=== PATIENT | female | born 1980 ===

== ENCOUNTER 2016-12-14 12:06 | Emergency (ER) | payer MEDICAID ==
[2016-12-14] MEDS ORDERED: DiphenhydrAMINE 50 mg/ml Inj IM STA ×2 (13:56→14:08)
[2016-12-14] MEDS ORDERED: DiphenhydrAMINE 50 mg/ml Inj ONE (14:04)
--- NOTE | 2016-12-14 15:15 | C.PDOC ---
History Of Present Illness 36 yr old female with history of prior rash and lip swelling in July of 2016 , was seen by an garbage stoker and was put on Benadryl and Claritin and symptoms resolved, presents to the ER with complaints of upper lip swelling since waking up this morning. Patient states since waking up the swelling has improved somewhat on its own without use of any medicine. Patient denies new foods, new medicine, ruthann inhibitors, difficulty swallowing or breathing, fever, chest pain , SOB, nausea, vomiting, headache, neck pain, weakness or numbness. Time Seen by Provider: 12/14/16 13:02 Chief Complaint (Nursing): Abnormal Skin Integrity History Per: Patient History/Exam Limitations: no limitations Onset/Duration Of Symptoms: Sudden Onset (Since waking up) Current Symptoms Are (Timing): Better Past Medical History Reviewed: Historical Data, Nursing Documentation, Vital Signs Vital Signs: Last Vital Signs Temp 98.0 F 12/14/16 15:58 Pulse 78 12/14/16 15:58 Resp 16 12/14/16 15:58 BP 123/79 12/14/16 15:58 Pulse Ox 97 12/14/16 18:08 Family History: States: No Known Family Hx - Social History Hx Alcohol Use: No Hx Substance Use: No - Immunization History Hx Tetanus Toxoid Vaccination: No Hx Influenza Vaccination: No Hx Pneumococcal Vaccination: No Review Of Systems Except As Marked, All Systems Reviewed And Found Negative. Constitutional: Negative for: Fever ENT: Positive for: Other ((+) Upper lip swelling ) Cardiovascular: Negative for: Chest Pain Respiratory: Negative for: Shortness of Breath Gastrointestinal: Negative for: Nausea, Vomiting Musculoskeletal: Negative for: Neck Pain Neurological: Negative for: Weakness, Numbness, Headache Physical Exam - Physical Exam Appears: Well, Non-toxic, No Acute Distress Skin: Warm, Dry, No Rash Head: Atraumatic, Normacephalic Oral Mucosa: Moist Lips: Swelling (Mild, diffuse swelling to the upper lip), No Abrasion, No Laceration, No Lesions Gingiva: Normal Appearing, No Erythema, No Ulceration, No Swelling, No Tender, No Bleeding Throat: Normal, No Erythema, No Exudate, No Drooling, Other (Uvula midline. No swelling. ) Neck: Normal, Normal ROM, Supple Chest: Symmetrical, No Tenderness Cardiovascular: Rhythm Regular, No Murmur Respiratory: Normal Breath Sounds, No Rales, No Rhonchi, No Stridor, No Wheezing Extremity: Normal ROM, No Swelling Neurological/Psych: Oriented x3, Normal Speech, Normal Motor ED Course And Treatment O2 Sat by Pulse Oximetry: 97 Medical Decision Making Medical Decision Making: PLAN: * POC Urine * Prednisone PO * Pepcid PO * Benadryl IM NOTE: 4 pm swelling to lip has decreased, not fully resolved. pt feeling better. will d/c with steroids, pepcid, and benadryl. pt advised to f/u garbage stoker manda and to return to ED for any worse swelling to lip, tongue, mouth, diff breathing or diff swallowing. Disposition Counseled Patient/Family Regarding: Diagnosis, Need For Followup, Rx Given - Disposition Disposition: HOME/ ROUTINE Disposition Time: 16:02 Condition: IMPROVED Additional Instructions: Seguimiento con renny harvey. Trainer los medicamentos segn lo prescrito. No conduzca cuando est tomando benadryl, lo hace sooliento. Regrese inmediatamente a la janell de emergencias para cualquier hinchazn peor a los labios, la lengua, la boca o cualquier dificultad para respirar o tragar. 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 - Scribe Statement The provider has reviewed the documentation as recorded by the Scribe Vianey Martell All medical record entries made by the Scribe were at my direction and personally dictated by me. I have reviewed the chart and agree that the record accurately reflects my personal performance of the history, physical exam, medical decision making, and the department course for this patient. I have also personally directed, reviewed, and agree with the discharge instructions and disposition.
[2016-12-14 15:59] VITALS: BP 123/79; PULSE 78; RESP 16; TEMP 98
[2016-12-14 16:02] VITALS: O2SAT 97
== END 2016-12-14 16:13 | disposition home or self-care (01) ==
LOC: C.ER 12:06
DX: R22.0 Localized swelling, mass and lump, head (principal)
CPT/HCPCS: 96372; 99285; J1200

== ENCOUNTER 2017-03-16 21:30 | Emergency (ER) | payer MEDICAID ==
[2017-03-16 21:42] VITALS: RESP 16; O2SAT 99
[2017-03-16] MEDS ORDERED: Sodium Chloride 0.9% 1,000 ML IV ONE (22:00)
[2017-03-16] MEDS ORDERED: Iohexol 240 (50 ml) PO ONE (22:01)
--- NOTE | 2017-03-16 22:13 | C.PDOC ---
History Of Present Illness 36 year old female who presents to the ER with a complaint of cramping, lower quadrant abdominal pain that began 2 hours ago. Denies nausea, vomiting, or urinary symptoms. Chief Complaint (Nursing): Abdominal Pain History Per: Patient History/Exam Limitations: no limitations Onset/Duration Of Symptoms: Hrs (2) Current Symptoms Are (Timing): Still Present Location Of Pain/Discomfort: RLQ, LLQ Radiation Of Pain To:: None Quality Of Discomfort: Cramping Associated Symptoms: denies: Fever, Chills, Nausea, Vomiting, Urinary Symptoms Exacerbating Factors: None Alleviating Factors: None Recent travel outside of the [place]: No Abnormal Vaginal Bleeding: No Past Medical History Reviewed: Historical Data, Nursing Documentation, Vital Signs Vital Signs: Last Vital Signs Temp 98.1 F 03/17/17 00:50 Pulse 88 03/17/17 00:50 Resp 16 03/17/17 00:50 BP 150/51 L 03/17/17 00:50 Pulse Ox 99 03/17/17 00:50 - Medical History PMH: No Chronic Diseases Surgical History: No Surg Hx Family History: States: Unknown Family Hx - Social History Hx Alcohol Use: No Hx Substance Use: No - Immunization History Hx Tetanus Toxoid Vaccination: No Hx Influenza Vaccination: No Hx Pneumococcal Vaccination: No Review Of Systems Constitutional: Negative for: Fever, Chills Gastrointestinal: Positive for: Abdominal Pain. Negative for: Nausea, Vomiting , Diarrhea Genitourinary: Negative for: Dysuria, Incontinence, Hematuria Physical Exam - Physical Exam Appears: Non-toxic Skin: Normal Color, Warm, Dry Head: Atraumatic, Normacephalic Oral Mucosa: Moist Chest: Symmetrical, No Tenderness Cardiovascular: Rhythm Regular, No Murmur Respiratory: Normal Breath Sounds, No Rales, No Rhonchi, No Wheezing Gastrointestinal/Abdominal: Soft, Tenderness (RLQ and hypogastric area), No Guarding, No Rebound Neurological/Psych: Oriented x3, Normal Speech, Normal Cognition ED Course And Treatment - Laboratory Results Result Diagrams: 03/16/17 22:28 03/16/17 22:28 O2 Sat by Pulse Oximetry: 99 (Room air) Pulse Ox Interpretation: Normal Progress Note: Blood work and urinalysis ordered. Toradol and IV fluids administered. Disposition Counseled Patient/Family Regarding: Diagnosis - Disposition Referrals: [facility] [Outside] Disposition: HOME/ ROUTINE Disposition Time: 03:08 Condition: STABLE Prescriptions: Naproxen [Naprosyn Tab] 375 mg PO TIDPC #14 tab Instructions: Ovarian Cyst (ED) Forms: [facility] (Tajik), Gen Discharge Inst Luxembourgish Print Language: COMORAN - Clinical Impression Clinical Impression: Abdominal pain, Ovarian cyst - Scribe Statement The provider has reviewed the documentation as recorded by the Scribe Riaz Flores All medical record entries made by the Margiibe were at my direction and personally dictated by me. I have reviewed the chart and agree that the record accurately reflects my personal performance of the history, physical exam, medical decision making, and the department course for this patient. I have also personally directed, reviewed, and agree with the discharge instructions and disposition.
[2017-03-16] MEDS ORDERED: Iohexol 240 (50 ml) ONE (22:36)
[2017-03-16 22:54] LABS: CHLORIDE 100 mmol/L (98-107); POTASSIUM 3.9 mmol/L (3.6-5.2); SODIUM 137 mmol/L (132-148)
[2017-03-16 22:56] LABS: BILIRUBIN,TOTAL 0.6 mg/dL (0.2-1.3); GFR AFRICAN-AMERICAN > 60
[2017-03-16 22:57] LABS: ALB/GLOB RATIO 1.2 (1.0-2.1); ALKALINE PHOSPHATASE 49 U/L (38-126); ALT/SGPT 33 U/L (9-52); AST/SGOT 30 U/L (14-36); BLOOD UREA NITROGEN 13 mg/dL (7-17); CALCIUM 8.4 mg/dl (8.6-10.4); CARBON DIOXIDE 23 mmol/L (22-30); GLUCOSE,RANDOM 96 mg/dL (65-105); TOTAL PROTEIN 6.9 g/dL (6.3-8.3)
[2017-03-16 23:01] LABS: RBC URINE < 1 /hpf (0-3); URINE BILIRUBIN NEGATIVE (NEGATIVE); URINE BLOOD NEGATIVE (NEGATIVE); URINE COLOR Yellow (YELLOW); URINE GLUCOSE (UA) NORMAL (Normal); URINE KETONE NEGATIVE (NEGATIVE); URINE LEUKOCYTE ESTERASE NEG Leu/uL (Negative); URINE PROTEIN NEGATIVE (NEGATIVE); URINE UROBILINOGEN NORMAL mg/dL (0.2-1.0); WBC URINE < 1 /hpf (0-5)
[2017-03-16 23:08] LABS: BASO # 0.1 K/uL (0.0-0.2); BASO % 0.6 % (0.0-2.0); EOS # 0.1 K/uL (0.0-0.7); EOS % 1.2 % (0.0-4.0); LYMPH # 1.8 K/uL (1.0-4.3); LYMPH % 21.1 % (20.0-40.0); MEAN CELL VOLUME 74.5 fL (81.0-99.0); MEAN CORPUSCULAR HEMOGLOBIN 23.9 pg (27.0-31.0); MONO # 0.6 K/uL (0.0-0.8); MONO % 6.9 % (0.0-10.0); NRBC % 0.1 % (0.0-2.0); RED CELL DISTRIBUTION WIDTH 15.1 % (11.5-14.5); WHITE BLOOD COUNT 8.4 K/uL (4.8-10.8)
[2017-03-17] MEDS ORDERED: Iodixanol 320 MG/ML 100 ML BOTTLE IV ONE (01:35)
[2017-03-17 02:40] VITALS: BP 150/51; PULSE 88; TEMP 98.1
--- NOTE | 2017-03-17 02:54 | CT ---
EXAM: CT Abdomen and Pelvis With Intravenous Contrast CLINICAL HISTORY: 36 years old, female; Pain; Abdominal pain; Additional info: Rlq pain TECHNIQUE: Axial computed tomography images of the abdomen and pelvis with intravenous contrast. This CT exam was performed using one or more of the following dose reduction techniques: automated exposure control, adjustment of the mA and/or kV according to patient size, and/or use of iterative reconstruction technique. Coronal and sagittal reformatted images were created and reviewed. CONTRAST: 100 mL of [id number] administered intravenously. COMPARISON: No relevant prior studies available. FINDINGS: Lower thorax: The bilateral lung bases are clear. ABDOMEN: Liver: No acute findings. Gallbladder and bile ducts: The gallbladder is decompressed. No calcified stones. No significant intra- or extrahepatic biliary ductal dilation. Pancreas: Enhances homogeneously. No ductal dilation. No discrete mass. Spleen: No acute findings. Adrenals: No acute findings. Kidneys and ureters: No acute findings. No hydronephrosis or renal calculi. No discrete solid mass. PELVIS: Bladder: No acute findings. Reproductive: An involuting cyst is identified within the left ovary measuring 27 mm in greatest dimension. Appendix: The air filled appendix is of normal caliber (series 3, image 124; series 601, image 49). The and ABDOMEN and PELVIS: Stomach and bowel: Oral contrast extends to the level of the colon, without obstruction. No mucosal thickening. Peritoneum: No significant fluid collection. No free air. Lymph nodes: No pathologically enlarged lymph nodes. Vasculature: Unremarkable. Bones: No acute fracture. IMPRESSION: Involuting left ovarian cyst. Normal appendix. No obstruction.
== END 2017-03-17 03:48 | disposition home or self-care (01) ==
LOC: C.ER 21:30
DX: N83.202 Unspecified ovarian cyst, left side (principal); R10.31 Right lower quadrant pain
CPT/HCPCS: 74177; 80053; 81001; 83690; 84703; 85025; 96374; 99285; J1885; J7040; Q9966; Q9967

== ENCOUNTER 2017-03-18 10:36 | Emergency (ER) | payer MEDICAID ==
[2017-03-18 10:44] VITALS: BP 118/75; PULSE 95; RESP 18; TEMP 98.1; O2SAT 98
--- NOTE | 2017-03-18 10:52 | C.PDOC ---
History Of Present Illness 36-year-old female presents to the emergency department with complaints of complaining of diffuse itchy rash and swelling around eyes. Patient states symptoms began two days ago; patient seen in ER for abdominal pain and had CT w / IV contrast. Patient thinks she may be allergic to IV contrast. She took Benadryl with minimal relief. Patient denies SOB, lip/tongue swelling, sensation of throat closing up, fever, cough. Time Seen by Provider: 03/18/17 10:45 Chief Complaint (Nursing): Allergic Reaction History Per: Patient History/Exam Limitations: no limitations Onset/Duration Of Symptoms: Days Current Symptoms Are (Timing): Still Present Home/EMS Treatment: Benadryl Severity: Moderate Past Medical History Reviewed: Historical Data, Nursing Documentation, Vital Signs Vital Signs: Last Vital Signs Temp 98.1 F 03/18/17 10:43 Pulse 95 H 03/18/17 10:43 Resp 18 03/18/17 10:43 BP 118/75 03/18/17 10:43 Pulse Ox 98 03/18/17 15:29 - Medical History PMH: No Chronic Diseases Family History: States: No Known Family Hx - Social History Hx Alcohol Use: No Hx Substance Use: No - Immunization History Hx Tetanus Toxoid Vaccination: No Hx Influenza Vaccination: No Hx Pneumococcal Vaccination: No Review Of Systems Except As Marked, All Systems Reviewed And Found Negative. Constitutional: Negative for: Fever ENT: Negative for: Throat Swelling Cardiovascular: Negative for: Chest Pain, Palpitations Respiratory: Negative for: Cough, Shortness of Breath Gastrointestinal: Negative for: Nausea, Vomiting, Abdominal Pain, Diarrhea Skin: Positive for: Rash Neurological: Negative for: Weakness, Numbness, Headache, Dizziness Physical Exam - Physical Exam Appears: Well, Non-toxic, No Acute Distress Skin: Warm, Dry, Rash (Diffuse urticaria to face, chest and arms.) Head: Normacephalic Eye(s): bilateral: Normal Inspection Oral Mucosa: Moist Tongue: Normal Appearing, No Swelling Lips: Normal Appearing, No Swelling Throat: Normal, No Erythema, No Exudate, No Drooling Neck: Normal, Normal ROM Cardiovascular: Rhythm Regular Respiratory: Normal Breath Sounds, No Accessory Muscle Use, No Rales, No Rhonchi , No Stridor, No Wheezing Extremity: Normal ROM Neurological/Psych: Oriented x3 ED Course And Treatment O2 Sat by Pulse Oximetry: 98 (RA) Pulse Ox Interpretation: Normal Progress Note: Patient given PO Prednisone, Benadryl and Pepcid in ED. Rxs for Prednisone and Benadryl given. Reevaluation Time: 11:20 Reassessment Condition: Improved (Patient reassessed, symptoms have improved and she states she feels better. She was instructed to avoid IV contrast in the future, and to follow up with PMD/clinic in 1-2 days. She understands she should return to ED if symptoms worsen.) Disposition Counseled Patient/Family Regarding: Diagnosis, Need For Followup, Rx Given - Disposition Referrals: [facility] [Outside] Disposition: HOME/ ROUTINE Disposition Time: 11:20 Condition: STABLE Prescriptions: DiphenhydrAMINE [Benadryl] 25 mg PO Q6 PRN #20 cap PRN Reason: Itching / Pruritus predniSONE [predniSONE Tab] 40 mg PO DAILY #8 tab Instructions: Urticaria (ED) Forms: [facility] (Korean) Print Language: ARABIC - Clinical Impression Clinical Impression: Allergic urticaria, Allergic to IV contrast - Scribe Statement The provider has reviewed the documentation as recorded by the Scribe (Srikanth Martínez) All medical record entries made by the Scribe were at my direction and personally dictated by me. I have reviewed the chart and agree that the record accurately reflects my personal performance of the history, physical exam, medical decision making, and the department course for this patient. I have also personally directed, reviewed, and agree with the discharge instructions and disposition.
== END 2017-03-18 11:26 | disposition home or self-care (01) ==
LOC: C.ER 10:36
DX: L50.0 Allergic urticaria (principal); T50.8X5A Adverse effect of diagnostic agents, initial encounter

== ENCOUNTER 2017-12-26 11:16 | Emergency (ER) | payer MEDICAID, OTHER ==
[2017-12-26 11:23] VITALS: O2SAT 98
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
[2017-12-26 13:24] VITALS: BP 113/72; PULSE 74; RESP 16; TEMP 99.6
== END 2017-12-26 13:30 | disposition home or self-care (01) ==
LOC: C.ER 11:16
DX: S16.1XXA Strain of muscle, fascia and tendon at neck level, initial encounter (principal); S43.401A Unspecified sprain of right shoulder joint, initial encounter; S30.1XXA Contusion of abdominal wall, initial encounter; V49.40XA Driver injured in collision with unspecified motor vehicles in traffic accident, initial encounter